=== PATIENT | male | born 1955 | race Caucasian/White ===

== ENCOUNTER → 2016-05-17 | Outpatient (CLI) | payer BC ==
[~2016-05-17] MED LIST: ANDROGEL5 GM TDERMAL; BENAZEPRIL-HCT1 EACH ORAL; DISCOVY PO; NORCO 5-325 TA1 EAC1 ORAL; TEMAZEPAM15 MG ORAL; TIVICAY PO; XANAX0.5 MG ORAL
--- NOTE | 2016-05-18 12:38 | Diagnostic Imaging Report ---
Indications: hip pain Findings: Two views of the left hip were obtained. There is no left hip joint. There is no malalignment or acute fracture identified. Impression: Osteoarthritis
--- NOTE | 2016-05-18 12:38 | Diagnostic Imaging Report ---
Indication: pain Findings: Single AP view of the pelvis was performed. No definite fracture is identified. There is severe degenerative arthritis of the right hip characterized by loss of joint space, sclerosis and subchondral cyst formation. Mild osteophyte is of the left hip noted. Impression: No acute injury
--- NOTE | 2016-05-22 11:45 | Diagnostic Imaging Report ---
Indication: Chest pain Comparison: None 2 views of the chest obtained. No definite infiltrate or pulmonary vascular congestion identified. The heart is enlarged. The aorta is mildly enlarged consistent with atherosclerotic vascular disease. The bones are osteopenic. Impression: No acute disease
== END | disposition home or self-care (01) ==
LOC: RAD 15:52
DX: Z01.818 Encounter for other preprocedural examination (principal); R05 Cough; M25.552 Pain in left hip
CPT/HCPCS: 71020; 72170; 73502

== ENCOUNTER 2016-05-27 09:02 | Inpatient (IN) | payer BC ==
[2016-05-27] VITALS (10 sets, daily range): BP systolic 102–130; BP diastolic 60–85
[~2016-05-27] VITALS: Ht 189.2 cm; Wt 98.9 kg
[~2016-05-27 09:02] MED LIST changes: -NORCO 5-325 TA1 EAC1 ORAL; +ceFAZolin 1gm/50ml Premix 50 ML IV ONE; +celeBREX 200mg Cap **SURGERY PATIENTS ONLY ORAL ONE; +oxyCONTIN 20mg tab ORAL ONE
[2016-05-27] MEDS ORDERED: celeBREX 200mg Cap **SURGERY PATIENTS ONLY ORAL ONE (12:51)
[2016-05-27] MEDS ORDERED: Morphine Sulfate PF 10 ML ONE (13:32)
[2016-05-27] MEDS ORDERED: Ropivacaine 5mg/ml Vial 20ml INJ ONE (13:33)
[2016-05-27] MEDS ORDERED: Bupivacaine 0.5% Inj 30 ml vial INJ ONE (13:33)
[2016-05-27] MEDS ORDERED: Bupivacaine w/Epi 0.25% 30ml Vial INJ ONE (13:36)
[2016-05-27] MEDS ORDERED: Bacitracin 50000 Units Vial ONE (13:36)
[2016-05-27] MEDS ORDERED: Ketorolac 30mg Inj ONE (13:36)
[2016-05-27] MEDS ORDERED: Kenalog-40 1ml Vial ONE (13:36)
--- NOTE | 2016-05-27 13:37 | Operative Note - PDOC ---
Operative Note Operative Note Pre-op Diagnosis: right hip oa Procedure: right mykel Post-op Diagnosis: same as pre-op Operative Findings: consistent w/pre-op dx studies Anesthesia: general Specimen: none Complications: none Condition: stable Estimated Blood Loss: none Implant(s) used?: Yes NATALIIA ROGERS May 27, 2016 13:37
--- NOTE | 2016-05-27 13:37 | Pre-Procedure Note/Attestation ---
Pre-Procedure Note/Attestation Complete Prior to Procedure Planned Procedure: right Procedure Narrative: mykel Indications for Procedure Pre-Operative Diagnosis: right hip oa Attestation I attest that I discussed the nature of the procedure; its benefits; risks and complications; and alternatives (and the risks and benefits of such alternatives ), prior to the procedure, with the patient (or the patient's legal field representatives director). I attest that, if there was a reasonable possibility of needing a blood transfusion, the patient (or the patient's legal field representatives director) was given the [facility] standardized written summary, pursuant to the Sohan Yulia Blood Safety Act ([place] Health and Safety Code # 1645, as amended). I attest that I re-evaluated the patient just prior to the surgery and that there has been no change in the patient's H&P, except as documented below: NATALIIA ROGERS May 27, 2016 13:37
[2016-05-27] MEDS ORDERED: Lidocaine 1% MPF 10mg/ml 5ml ONE (14:00)
[2016-05-27] MEDS ORDERED: Propofol 10mg/ml 20ml IV ONE (14:00)
[2016-05-27] MEDS ORDERED: LR 1000ml ONE (14:00)
[2016-05-27] MEDS ORDERED: Dexamethasone 4mg/ml vial ONE (14:00)
[2016-05-27] MEDS ORDERED: Midazolam 2mg/2ml Inj ONE (14:00)
[2016-05-27] MEDS ORDERED: Sterile Water Irrig 1000ml IRRIG ONE (14:00)
[2016-05-27] MEDS ORDERED: NS Irrig 1000ml ONE (14:00)
[2016-05-27] MEDS ORDERED: Alfentanil 2ml Inj ONE (14:00)
--- NOTE | 2016-05-27 14:42 | Anethesia Preoperative Eval ---
Anesthesia Pre-op PMH/ROS General Date of Evaluation: May 27, 2016 Time of Evaluation: 13:51 Anesthesiologist: Steven ASA Score: ASA 3 Mallampati Score Class I : Soft palate, uvula, fauces, pillars visible Class II: Soft palate, uvula, fauces visible Class III: Soft palate, base of uvula visible Class IV: Only hard plate visible Mallampati Classification: Class II Surgeon: Alexys Diagnosis: R Hip Pain Surgical Procedure: R THR Anesthesia History: none Family History: no anesthesia problems Allergies: Coded Allergies: No Known Allergies (Unverified , 05/25/16) Medications: see eMAR Past Medical History Cardiovascular: Reports: HTN Hematology/Immune: Reports: other - HIV Musculoskeletal/Integumentary: Reports: other - Poor Gait PSxH Narrative: R Eye SX Anesthesia Pre-op Phys. Exam Physician Exam Last Vital Signs Date Time Temp Pulse Resp B/P Pulse Ox O2 Delivery O2 Flow Rate FiO2 05/27/16 10:39 98.8 58 18 130/85 99 Room Air Constitutional: NAD Neurologic: CN 2-12 intact Cardiovascular: RRR Respiratory: CTA Gastrointestinal: S/NT/ND Airway Exam Mallampati Score: Class II MO: full ROM: full Teeth: intact Anesthesia Pre-op A/P Risk Assessment & Plan Assessment: ASA 3 Plan: GA, BIS, Spinal, R Lumbar Plexus Block Status Change Before Surgery: No Pre-Antibiotics Dru Grams Ancef IV Given Within 1 Hr of Incision: Yes Time Given: 12:16 Darrel Harris MD May 27, 2016 14:42
[2016-05-27] MEDS ORDERED: LR 1000ml 1,000 ML IVLG SCH (14:44)
[2016-05-27] MEDS ORDERED: Atropine Inj 1mg/10ml Syr IV PRN (14:45)
[2016-05-27] MEDS ORDERED: Midazolam 2mg/2ml Inj IVP PRN (14:45)
[2016-05-27] MEDS ORDERED: Labetalol 5mg/ml 20ml vial IV PRN (14:45)
[2016-05-27] MEDS ORDERED: Ketorolac 60mg Inj IV PRN (14:45)
[2016-05-27] MEDS ORDERED: LORazepam Inj 2mg/ml 1ml IV PRN (14:45)
[2016-05-27] MEDS ORDERED: Norco 5mg/325mg tab ORAL PRN (14:45)
[2016-05-27] MEDS ORDERED: Norco 7.5mg/325mg tab ORAL PRN (14:45)
[2016-05-27] MEDS ORDERED: Meperidine 25mg/ml Inj IV PRN (14:45)
[2016-05-27] MEDS ORDERED: DiphenhydrAMINE 50mg/ml Inj IVP PRN (14:45)
[2016-05-27] MEDS ORDERED: Hydromorphone 0.5mg/0.5ml inj IVP PRN (14:45)
[2016-05-27] MEDS ORDERED: Metoclopramide 10mg/2ml Inj IVP PRN (14:45)
[2016-05-27] MEDS ORDERED: fentaNYL 100 mcg/2 mL IV PRN (14:45)
[2016-05-27] MEDS ORDERED: Oxycodone/Acetaminophen 5-325 ORAL PRN (14:45)
[2016-05-27] MEDS ORDERED: Ketorolac 30mg Inj IV PRN (14:45)
[2016-05-27] MEDS ORDERED: Tranexamic Acid 1,000 MG in NS 65 ML IVPB ONE (15:00)
[2016-05-27] MEDS ORDERED: Duramorph PF 10mg/10ml amp EPIDUR ONE (15:00)
--- NOTE | 2016-05-27 15:04 | Immediate Post-Op Evaluation ---
Immediate Post-Op Evalulation Immediate Post-Op Evalulation Procedure: R MATTHEW Date of Evaluation: May 27, 2016 Time of Evaluation: 16:34 IV Fluids: 2000 LR Blood Products: 0 Estimated Blood Loss: 75 Urinary Output: 0 Blood Pressure Systolic: 108 Blood Pressure Diastolic: 67 Pulse Rate: 76 Respiratory Rate: 16 O2 Sat by Pulse Oximetry: 100 Temperature (Fahrenheit): 97.8 Pain Score (1-10): 1 Nausea: No Vomiting: No Complications 0 Patient Status: awake, reacts, patent, none Hydration Status: adequate Dru Grams Ancef IV Given Within 1 Hr of Incision: Yes Time Given: 12:16 Darrel Harris MD May 27, 2016 15:04
--- NOTE | 2016-05-27 15:05 | 48 Hour Post Anesthesia Eval ---
Post Anesthesia Evaluation Procedure: R MATTHEW Date of Evaluation: May 27, 2016 Time of Evaluation: 16:34 Blood Pressure Systolic: 108 0: 67 Pulse Rate: 76 Respiratory Rate: 16 Temperature (Fahrenheit): 97.8 O2 Sat by Pulse Oximetry: 100 Airway: patent Nausea: No Vomiting: No Pain Intensity: 1 Hydration Status: adequate Cardiopulmonary Status: Stable Mental Status/LOC: patient returned to baseline Follow-up Care/Observations: 0 Post-Anesthesia Complications: 0 Follow-up care needed: N/A Darrel Harris MD May 27, 2016 15:05
[2016-05-27] MEDS ORDERED: Bupivacaine 0.25% Inj 30ml INJ ONE (15:54)
[2016-05-27] MEDS ORDERED: oxyCODONE 5mg IR tab ORAL PRN (20:00)
[2016-05-27] MEDS ORDERED: Morphine Sulfate 2mg/ml Inj IVP PRN (20:00)
[2016-05-27] MEDS ORDERED: Morphine Sulfate 4mg/ml Inj IVP PRN (20:00)
[2016-05-27] MEDS ORDERED: Milk of Magnesia 30ml Ud ORAL PRN (20:00)
[2016-05-27] MEDS: ceFAZolin sod 2 GM in D5W 110 ML IV SCH (20:34)
[2016-05-27] MEDS: D5 1/2NS w/KCl 20mEq 1,000 ML IV SCH (20:34)
[2016-05-27] MEDS: Docusate 100mg cap ORAL SCH (20:35)
[2016-05-27] MEDS: oxyCONTIN 20mg tab ORAL SCH (20:35)
[2016-05-28 00:04] VITALS: BP 95/59
[2016-05-28] MEDS: D5 1/2NS w/KCl 20mEq 1,000 ML IV SCH ×3 (03:34→16:45)
[2016-05-28] MEDS: ceFAZolin sod 2 GM in D5W 110 ML IV SCH (03:35)
[2016-05-28 04:00] VITALS: BP 97/60
[2016-05-28 08:00] VITALS: BP 110/55
[2016-05-28] MEDS: celeBREX 200mg Cap **SURGERY PATIENTS ONLY ORAL SCH ×2 (09:30→10:30)
[2016-05-28] MEDS: Docusate 100mg cap ORAL SCH ×3 (09:30→18:15)
[2016-05-28] MEDS: oxyCONTIN 20mg tab ORAL SCH (09:45)
--- NOTE | 2016-05-28 11:59 | Diagnostic Imaging Report ---
Indication: Status post right hip replacement Findings: Single AP view of the pelvis was performed. Right hip bipolar hemiarthroplasty demonstrated and appearing in normal alignment and position. There is no acute fracture or other complications identified. Schwartz catheter noted. Impression: Status post right hip replacement
[2016-05-28 12:00] VITALS: BP 113/54
[2016-05-28 16:00] VITALS: BP 149/87
[2016-05-30] MEDS ORDERED: NORCO 5-325 TA1 EAC1 ORAL (09:56)
--- NOTE | 2016-05-30 09:56 | Discharge Summary ---
Discharge Summary Hospital Course Date of Admission May 27, 2016 at 09:53 Date of Discharge May 28, 2016 at 18:35 Admitting Diagnosis osteoarthritis R hip Reason for Hospitalization: elective surgery R hip arthroplasty HPI Zeus Huerta is a 60 year old male who was admitted on May 27, 2016 at 09: 53 for Rt Hip Osteoarthritis Procedures s/p 05/27 R total hip arthroplasty Hospital Course admitted for elective surgery for R hip osteoarthritis s/p 05/27 R total hop arthroplasty course of recovery uneventful PT/OT, ambulated hip surgery precautions pain management, controlled tolerated diet voided without difficulties HIV medications resumed BP controlled with current regimen DVT prophylaxis per surgery surgery cleared for discharge home with home health services for PT/OT due to rapid and unexpected improvement in patient condition, Pieter was discharged in 1 days Discharge Medications New Medications: Hydrocodone Bit/Acetaminophen 5-325* ([place] 5-325 Tablet*) 1 Each Tablet 1 TAB ORAL Q6HR PRN, #10 TAB Continued Medications: Alprazolam* (Xanax*) 0.5 Mg Tablet 0.5 MG ORAL BID, TAB Benazepril/Hydrochlorothiazide (Benazepril-Hctz 10-12.5 Mg Tab) 1 Each Tablet 1 TAB ORAL DAILY, TAB Dolutegravir Sodium (Tivicay) 25 Mg Tablet 25 MG PO DAILY, TAB Temazepam (Temazepam*) 15 Mg Capsule 15 MG ORAL BEDTIME, #30 CAP 0 Refills Testosterone (Androgel) 5 Gm Gel.packet 1 PKT TDERMAL DAILY, #30 PKT 0 Refills Discharge Condition Upon Discharge: stable Discharge Disposition Patient was discharged to Home with Home Health(06) Discharge Diagnoses: (1) Osteoarthritis of right hip (2) S/P total hip arthroplasty (3) HIV disease (4) HTN (hypertension) Discharge Instructions Discharge Instructions Special Instructions I have been assigned to complete a D/C Summary on this account. I was not involved in the patient management Jina Crain NP ([place]) May 30, 2016 09:56
--- NOTE | 2016-05-30 14:37 | Operative Note - Dictated ---
DATE OF OPERATION: 05/27/2016 PREOPERATIVE DIAGNOSIS: Right hip arthritis. POSTOPERATIVE DIAGNOSIS: Right hip arthritis. PROCEDURES: Right total hip arthroplasty. SURGEON: Stuart Reardon M.D. ANESTHESIA: Interscalene with spinal, general. 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 The patient failed conservative treatment and elected to undergo a right total hip arthroplasty. The risks, limitations, expectations, and complications of the procedure were detailed including instability, leg length discrepancy, neurovascular damage, risk of anesthesia, medical complication, DVT, PE, and mortality risk. All questions were addressed. DESCRIPTION OF PROCEDURE: Informed consent was obtained. The patient was taken to the operative room and placed under interscalene spinal general anesthesia. A Schwartz catheter was placed. Ancef was administered. The patient was then carefully placed in lateral decubitus position. Right hip was prepped and draped in a sterile manner. Time-out was performed. A standard posterolateral skin incision was then made. Fascia gail was incised. Piriformis and short external rotators were teed. Capsule was teed and tagged with #2 FiberWire. In situ neck was made. Anterior inferior acetabular retractors were placed. Excess labrum was removed. Sequential reaming up to 55 was performed and 56 acetabular shell was placed, approximately 15 degrees of anteversion and 45 degrees abduction based on the anatomy. Once it was seated and this was confirmed, a neutral liner was placed. At this point, sequential broaching up to size 7 was performed. A 7 high offset 0 head and neck combo was selected. X-ray showed relatively good position. Implants recreated leg lengths. Clinically, the hip flexed to 110 degrees, 90 degrees flexion, and internal rotation of 60. Extension and external rotation was stable. Leg lengths were clinically equal. At this point, the trial components were removed. Final implants were impacted into place. Capsule was reapproximated through the greater trochanteric. Fascia gail was closed with 1-0 Vicryl suture, 2-0 Vicryl suture, and 3-0 Monocryl sutures. Steri-Strips and a sterile dressing were applied. The patient was awoken and taken to the recovery room with stable vital signs. ESTIMATED BLOOD LOSS: 50 mL. COMPLICATIONS: None. SPECIMENS: Femoral head implants. Size 56 MDM acetabular component, 7 high offset Accolade stem with 0 head and neck combo. Stuart Reardon M.D. DR: YULI JOB#: [id number] CC: BETH
--- NOTE | 2016-05-31 14:04 | Diagnostic Imaging Report ---
Indication: pain Findings: Single AP view of the pelvis was performed. Partial, portable, intraoperative view of the right hip demonstrating femoral spacer. Acetabular cup is noted. Schwartz catheter is present. Impression: Intraoperative imaging
== END 2016-05-28 18:35 | disposition home health service (06) | DRG 469 ==
LOC: SDSOVERFLO 09:53 → 3E 18:12
PROC: 0SR90JA Replacement of Right Hip Joint with Synthetic Substitute, Uncemented, Open Approach (ICD-10-PCS; principal; 2016-05-27 15:00)
DX: M16.7 Other unilateral secondary osteoarthritis of hip (principal); B20 Human immunodeficiency virus [HIV] disease; Q65.89 Other specified congenital deformities of hip; I10 Essential (primary) hypertension; M85.80 Other specified disorders of bone density and structure, unspecified site
CPT/HCPCS: 36415; 72170; 86850; 86900; 86901; 87081; 94003; 94150; J2250; J2405; J3490